=== PATIENT | male | born 1965 | race Caucasian/White ===

== ENCOUNTER 2018-08-06 09:31 | Emergency (ER) | payer OTHER ==
[~2018-08-06] VITALS: Ht 175.3 cm; Wt 101.2 kg
[~2018-08-06 09:31] MED LIST: ANXIETY; BLOOD PRESSURE; CIPROFLOXACIN250 M2 PO; CIPROFLOXACIN500 M3 PO; COLACE 100 MG100 MG PO; FLAGYL500 MG PO; HYDROCODON-ACE1 EAC7; LORAZEPAM 0.50.5 MG PO; PENICILLIN VK500 M1; TOPROL XL25 MG PO
[2018-08-06 09:41] VITALS: BP 128/82
[2018-08-06] MEDS ORDERED: ZESTORETIC 10-1 EACH PO (09:45)
[2018-08-06 09:52] LABS: ABSOLUTE EOSINOPHILS 0.1 thou/uL (0.0-0.7); ABSOLUTE LYMPHOCYTES 2.1 thou/uL (0.8-5.3); ABSOLUTE MONOCYTES 0.9 thou/uL (0.0-1.2); ABSOLUTE NEUTROPHILS 5.4 thou/uL (1.6-8.1); BASOPHILS 0.5 %; EOSINOPHILS 1.1 %; HEMATOCRIT 46.3 % (42.0-52.0); HEMOGLOBIN 16.1 gm/dL (14.0-18.0); LYMPHOCYTES 24.4 %; MCH 30.3 pg (26.0-34.0); MCHC 34.7 g/dL (28.0-37.0); MCV 87.2 fL (80.0-100.0); MONOCYTES 10.3 %; MPV 7.4 fl. (7.2-11.1); NUCLEATED RBCS 0 /100WBC; PLATELET COUNT* 246 thou/uL (150-400); POLYS 63.7 %; RBC 5.31 mil/uL (4.50-6.00); RDW-CV 13.2 % (10.5-14.5); WBC 8.5 thou/uL (4.0-11.0)
[2018-08-06 09:52] LABS: URINE BILIRUBIN NEGATIVE (Negative); URINE BLOOD NEGATIVE (Negative); URINE CLARITY CLEAR; URINE COLOR YELLOW; URINE GLUCOSE-RANDOM NEGATIVE (Negative); URINE KETONES NEGATIVE (Negative); URINE LEUKOCYTES-REFLEX NEGATIVE (Negative); URINE NITRITE-REFLEX NEGATIVE (Negative); URINE PROTEIN NEGATIVE (Negative); URINE SPECIFIC GRAVITY 1.025 (1.005-1.030); URINE UROBILINOGEN 0.2 E.U./dl (0.2-1.0)
[2018-08-06 10:10] LABS: ALBUMIN 4.4 g/dL (3.4-5.0); CALCIUM 9.1 mg/dL (8.5-10.1); CREATININE 1.2 mg/dL (0.6-1.3); POTASSIUM 4.2 mmol/L (3.5-5.1); TOTAL BILIRUBIN 0.5 mg/dL (<0.1-1.0); TOTAL PROTEIN 8.2 g/dL (6.4-8.2)
--- NOTE | 2018-08-06 11:02 | NUR ---
GENESIS NOTIFIED UPON PT RETURN FROM CT. PT WAS NOT CONNECTED TO MONITOR HE WAS NOTCONNECTED PRIOR TO GOING TO CT
[2018-08-06] MEDS ORDERED: ZOFRAN ODT4 MG SUBLING (13:11)
[2018-08-06 13:28] VITALS: BP 126/86
--- NOTE | 2018-08-06 14:54 | EKG ---
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
== END 2018-08-06 13:28 | disposition home or self-care (01) ==
LOC: M.ERS 09:31 → M.TBA-ER 12:08 → M.ERS 12:08 → M.ORTHSURG 12:45 → M.TBA-ER 12:45 → M.ERS 13:28
PROVIDERS: Family Medicine
DX: E86.0 Dehydration (principal); R11.2 Nausea with vomiting, unspecified; I10 Essential (primary) hypertension

== ENCOUNTER 2020-07-04 08:17 | Emergency (ER) | payer OTHER ==
[~2020-07-04] VITALS: Ht 177.8 cm; Wt 106.6 kg
[~2020-07-04 08:17] MED LIST changes: +ZESTORETIC 10-1 EACH PO; +ZOFRAN ODT4 MG SUBLING
[2020-07-04 09:07] LABS: ABSOLUTE BASOPHILS 0.1 thou/uL (0.0-0.2); ABSOLUTE EOSINOPHILS 0.1 thou/uL (0.0-0.7); ABSOLUTE LYMPHOCYTES 2.5 thou/uL (0.8-5.3); ABSOLUTE MONOCYTES 0.8 thou/uL (0.0-1.2); ABSOLUTE NEUTROPHILS 5.1 thou/uL (1.6-8.1); BASOPHILS 0.7 %; EOSINOPHILS 1.4 %; HEMATOCRIT 43.1 % (42.0-52.0); HEMOGLOBIN 15.3 gm/dL (14.0-18.0); LYMPHOCYTES 29.1 %; MCH 30.5 pg (26.0-34.0); MCHC 35.4 g/dL (28.0-37.0); MCV 86.3 fL (80.0-100.0); MONOCYTES 9.6 %; MPV 7.3 fl. (7.2-11.1); NUCLEATED RBCS 0 /100WBC; PLATELET COUNT* 238 thou/uL (150-400); POLYS 59.2 %; RDW-CV 13.5 % (10.5-14.5); WBC 8.7 thou/uL (4.0-11.0)
[2020-07-04 09:12] LABS: CALCIUM 8.5 mg/dL (8.5-10.1); CREATININE 1.2 mg/dL (0.6-1.3); POTASSIUM 3.9 mmol/L (3.5-5.1)
[2020-07-04 09:16] LABS: ALBUMIN 4.3 g/dL (3.4-5.0); TOTAL BILIRUBIN 0.6 mg/dL (<0.1-1.0); TOTAL PROTEIN 7.9 g/dL (6.4-8.2)
[2020-07-04 11:02] LABS: URINE BILIRUBIN NEGATIVE (Negative); URINE BLOOD NEGATIVE (Negative); URINE CLARITY CLEAR; URINE COLOR YELLOW; URINE GLUCOSE-RANDOM NEGATIVE (Negative); URINE KETONES NEGATIVE (Negative); URINE LEUKOCYTES-REFLEX NEGATIVE (Negative); URINE NITRITE-REFLEX NEGATIVE (Negative); URINE PROTEIN NEGATIVE (Negative); URINE UROBILINOGEN 0.2 E.U./dl (0.2-1.0)
[2020-07-04] MEDS ORDERED: AUGMENTIN 875-1 EACH PO (12:29)
[2020-07-04] MEDS ORDERED: ZOFRAN ODT4 MG DISSOLVE (12:29)
[2020-07-04] MEDS ORDERED: NORCO 5-325 TA1 EAC2 PO (12:29)
[2020-07-04 12:51] VITALS: BP 120/70
--- NOTE | 2020-07-04 17:43 | EKG ---
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: [facility] : 1965 Requested By: Dallas Saha Order Number: [id number] MD: Taye Pacheco Measurements Intervals [place] Rate: 73 P: 161 AR: 188 QRS: 168 QRSD: 94 T: 186 QT: 377 QTc: 416 Interpretive Statements Right and left arm electrode reversal, interpretation assumes no reversal Sinus or ectopic atrial rhythm Probable lateral infarct, age indeterminate Compared to ECG 08/06/2018 09:52:10 Ectopic atrial rhythm now present Sinus rhythm no longer present Myocardial infarct finding still present Electronically Signed On 07-04-2020 17:43:47 CDT by Taye Pacheco [email or web address] <ELECTRONICALLY SIGNED> By: Taye Pacheco MD, FACC 07/04/20 1743 0854 0854 Taye Pacheco MD, FACC /EPI
== END 2020-07-04 12:52 | disposition home or self-care (01) ==
LOC: M.ERS 08:17
PROVIDERS: Emergency Medicine Emergency Medical Services
DX: R10.32 Left lower quadrant pain (principal); I10 Essential (primary) hypertension; Z87.442 Personal history of urinary calculi; Z86.718 Personal history of other venous thrombosis and embolism